=== PATIENT | male | born 1955 | race Caucasian/White ===

== ENCOUNTER → 2016-08-19 | Outpatient (CLI) | payer OTHER ==
[~2016-08-19] MED LIST: AMLO5TAB2 PO; ATAZ300C PO; CEFU500T PO; CETI10TA24 PO; HYDR-3138 PO; NITR100C6 PO; OMNIPAQUE 350 MG/ML, 75ML BOTTLE ONE; RALT400T PO; RILP25TA PO; SERT50TA5 PO; TERA2CAP3 PO; TRAZ50TA18 PO
== END | disposition home or self-care (01) ==
LOC: CFH 08:08 → EDSTATUS 08:30
PROVIDERS: ATTEND Internal Medicine Pulmonary Disease
DX: R91.8 Other nonspecific abnormal finding of lung field (principal)
CPT/HCPCS: 71260; 82565; Q9967